=== PATIENT | male | born 1995 | race Caucasian/White ===

== ENCOUNTER 2020-10-07 12:01 | Emergency (ER) | payer OTHER, SELFPAY ==
--- NOTE | ~2020-10-07 | XR_ITS ---
XR ankle LT min 3V DATE: 10/07/2020 12:23 INDICATION: Inversion injury. Generalized lateral pain. TECHNIQUE: 4 views COMPARISON: left ankle FINDINGS: There is mild lateral soft tissue swelling. No fracture or dislocation of the ankle or disr uption of the ankle mortise. No periosteal reaction or bone destruction. IMPRESSION: Mild lateral ankle soft tissue swelling Reviewed, dictated and finalized at location A.
--- NOTE | 2020-10-07 12:05 | ED.LOWEXIN ---
HPI - Extremity Injury (Lower) General Chief Complaint: Extremity Injury, Lower Stated Complaint: lt ankle pain Time Seen by Provider: 10/07/20 12:06 Source: patient and RN notes reviewed History of Present Illness HPI Narrative: Patient is a 24-year-old male who presents the urgent care with complaints of left ankle pain. Patient states that yesterday he was walking backwards in cowboy boots and he heard the ankle pop . Patient states that now it is very difficult to bear weight and feels stiff and swollen. Patient denies of any fall. Patient has been using crutches and taking Tylenol for the pain. No other acute complaints. No acute distress noted. Patient aware of the plan of care. Some parts of this dictation were generated by voice recognition software and may contain typographical and/or grammatical inaccuracies. Related Data Home Medications Medication Instructions Recorded Confirmed No Home Medications 10/07/20 10/07/20 Allergies Allergy/AdvReac Type Severity Reaction Status Date / Time No Known Allergies Allergy Verified 10/07/20 12:16 Review of Systems Review of Systems: Narrative: CONSTITUTIONAL: Denies fever, chills, or sweats. EYES: Denies visual changes, redness, or discharge. ENT: Denies rhinorrhea, congestion, sore throat, or otalgia. CARDIOVASCULAR: Denies chest pain, palpitations, or edema. RESPIRATORY: Denies cough or dyspnea. GASTROINTESTINAL: Denies abdominal pain, nausea, vomiting, or diarrhea. GENITOURINARY: Denies dysuria or hematuria. SKIN: Denies rash or itching. MUSCULOSKELETAL: Reports of left ankle pain/swelling/stiffness NEUROLOGIC: Denies headache, numbness, or weakness. All other systems reviewed are negative, except as documented in HPI. [facility] Family History Family History (Updated 01/19/14 @ 07:13 by DOCTOR UNKNOWN) Other Family history of alcoholism Family history of malignant neoplasm Social History Social History Smoking status: Never smoker Alcohol intake: never Comments At the time of my signature, I reviewed and agree with the nursing past medical, surgical, social, and family history. There is no relevant family history pertinent to the patient complaint. Exam Narrative: Exam Narrative: GENERAL: This is a well-nourished, well-developed patient, in no apparent distress. HEAD: normocephalic, atraumatic. EYES: PERRL. Sclera clear/white. Vision is grossly intact. EARS: External ears normal NOSE: External nose normal with no obvious nasal discharge, nares without redness, no rhinorrhea. THROAT: Mucous membranes moist NECK: Neck supple SKIN: warm, intact with no suspicious lesions or rash, good texture and turgor. NEURO: awake, alert, and oriented to person, place and time. There were no obvious focal neurologic abnormalities. EXTREMITIES: Mild edema noted to the lateral aspect of the left malleolus with mild tenderness. Range of motion limited due to pain. Pain exacerbated with weightbearing. Positive strong left pedal pulse with capillary refill less than 2 seconds. Course Vital Signs Vital signs: Vital Signs Temperature 97.4 F L 10/07/20 12:12 Pulse Rate 64 10/07/20 12:12 Respiratory Rate 16 10/07/20 12:12 Blood Pressure 144/71 H 10/07/20 12:12 Pulse Oximetry 100 10/07/20 12:12 Temperature 97.4 F L 10/07/20 12:17 Pulse Rate 64 10/07/20 12:17 Respiratory Rate 16 10/07/20 12:17 Blood Pressure 144/71 H 10/07/20 12:17 Pulse Oximetry 100 10/07/20 12:17 Reviewed?patient is informed that they may have pre-hypertension or hypertension based on a blood pressure reading in the department. I recommend the patient call the primary care provider listed on their discharge instructions or a physician of their choice this week to arrange follow-up for further evaluation of possible pre-hypertension or hypertension. MDM - Extremity Injury (Lower) MDM Narrative Medical decision making narrative: Reviewed x-ray results with the stacia
[2020-10-07 12:12] VITALS: BP 144/71; PULSE 64; RESP 16; TEMP 36.3; O2SAT 100
[2020-10-07 12:17] VITALS: BP 144/71; PULSE 64; RESP 16; TEMP 36.3; O2SAT 100
== END 2020-10-07 12:53 | disposition home or self-care (01) ==
PROVIDERS: Emergency Provider Nurse Practitioner Family
DX: S93.402A Sprain of unspecified ligament of left ankle, initial encounter (principal); S96.912A Strain of unspecified muscle and tendon at ankle and foot level, left foot, initial encounter; X58.XXXA Exposure to other specified factors, initial encounter; Y93.01 Activity, walking, marching and hiking
CPT/HCPCS: 73610; 99213; G0463

== ENCOUNTER 2022-04-23 10:41 | Emergency (ER) | payer SELFPAY ==
[2022-04-23 10:46] VITALS: BP 132/81; PULSE 62; RESP 16; TEMP 37.3; O2SAT 99
--- NOTE | 2022-04-23 11:26 | ED.URI ---
HPI - URI/Sore Throat General Chief Complaint: Upper Respiratory Infection Stated Complaint: Sore Throat Time Seen by Provider: 04/23/22 11:26 History of Present Illness HPI Narrative: 26-year-old male presents for complaint of sore throat for 3 days. He endorses testing positive for COVID last week. Symptoms are improving. He states last night the sore throat was also better. Today mucous is brown. Unable to tolerate food for 3 days. Drinking small amount of fluids. He is unable to use Chloraseptic spray stating the pharmacies are out of them. He denies associated cough, shortness of breath, wheezing, nausea, vomiting, diarrhea, fevers or chills at this time. Related Data Allergies Allergy/AdvReac Type Severity Reaction Status Date / Time No Known Allergies Allergy Verified 04/23/22 11:13 Review of Systems Review of Systems: ROS per HPI PMFSH Family History Family History Other Family history of alcoholism Family history of malignant neoplasm Social History Social History Smoking status: Never smoker Alcohol intake: never Exam Narrative: GENERAL: well-appearing, no acute distress. EYES: conjunctivae clear ENT: Mucous membranes moist. TMs pearly paige with normal light reflex bilaterally; no tragal tenderness. Oropharynx erythematous without lesions. Tonsils not enlarged and without exudate. No drooling, no hoarseness, no trismus, uvula midline. No tripod positioning, hot potato voice, or soft palate swelling. NECK: Supple. No lymphadenopathy CHEST: Clear to auscultation, breath sounds equal. No respiratory distress, speaks in full sentences. HEART: Regular rate and rhythm. No murmur heard. SKIN: Warm, dry, no rash. NEURO: Alert and oriented x3. Course Course Emergency Course: Patient is aware of diagnosis, understands and agrees to treatment plan. Anticipatory guidance given. Patient agrees to follow-up as directed and is aware of reasons to seek care at the emergency department. Portions of this record may have been created with voice recognition software Level of Care: Express Care Visit Vital Signs Vital signs: Vital Signs Temperature 99.2 F 04/23/22 10:46 Pulse Rate 62 04/23/22 10:46 Respiratory Rate 16 04/23/22 10:46 Blood Pressure 132/81 04/23/22 10:46 Pulse Oximetry 99 04/23/22 10:46 Oxygen Delivery Room Air 04/23/22 10:46 Temperature 99.2 F 04/23/22 10:46 Pulse Rate 62 04/23/22 10:46 Respiratory Rate 16 04/23/22 10:46 Blood Pressure 132/81 04/23/22 10:46 Pulse Oximetry 99 04/23/22 10:46 Oxygen Delivery Room Air 04/23/22 10:46 MDM - URI/Sore Throat MDM Narrative Medical decision making narrative: strep result reviewed with pt. Advise supportive treatments. Patient is appropriate for outpatient treatment and follow-up. Differential Diagnosis Differential diagnosis: Likely upper respiratory infection, viral infection and pharyngitis Lab Data Labs: Strep Screen Presumptive Negative *(Reference Range: Negative)* Discharge Plan Discharge Clinical Impression: Viral infection Patient Disposition: Home, Self-Care Condition: Stable Instructions: Pharyngitis (ED) Additional Instructions: Rapid strep swab was negative today You will be notified in a few days if the culture comes back positive for strep, and appropriate antibiotics will be called in at that time. if symptoms are due to a viral illness, it is not treated with antibiotics. Viral symptoms can be present for up to 10-14 days. Recommend Flonase spray and Zyrtec for sinus congestion Cough syrup may cause drowsiness; avoid driving or take it at night time. Tylenol every 8 hours as needed for pain/fever Soft foods, cool liquids, warm tea. Gargle with warm saltwater twice a day.
== END 2022-04-23 11:38 | disposition home or self-care (01) ==
PROVIDERS: Emergency Provider Nurse Practitioner Family
DX: B34.9 Viral infection, unspecified (principal)
CPT/HCPCS: 87081; 87880; 99213; G0463

== ENCOUNTER 2024-07-04 10:36 | Emergency (ER) | payer BC, SELFPAY ==
--- NOTE | ~2024-07-04 | XR_ITS ---
EXAMINATION: XR knee RT min 4V DATE: 07/04/2024 11:05 INDICATION: Right knee pain TECHNIQUE: Anteroposterior, 2 oblique, sunrise and crosstable lateral views of the right knee were ob tained COMPARISON: None. FINDINGS: Alignment is normal. No fracture. Joint spaces appear normal on nonweightbearing imaging. No joint e ffusion. Soft tissues are unremarkable. IMPRESSION: 1. Normal right knee radiographs. Reviewed, dictated and finalized at location A. [facility] [employer]
[2024-07-04 10:49] VITALS: BP 120/77; PULSE 88; RESP 16; TEMP 37.5; O2SAT 100
--- OUTSIDE RECORDS SUMMARY | 2024-07-04 11:25 | XMS_ITS | Referral Summary ---
Author Organization [facility] Address [address] [place] [address] Care Team Providers Care Edm Operator Name Role Phone No, Physician Primary Care Provider [phone] Allergies No known active allergies Medications doxycycline (VIBRAMYCIN) 100 mg capsule Take 1 tablet/capsule (100 mg total) by mouth 2 (two) times a day 20 capsule 01/12/20 19 Active HYDROcodone-acetam inophen (NORCO) 5-325 mg per tabletIndications: Pain Take 1 tablet by mouth every 6 (six) hours as needed for pain Do not exceed 8 tablets/day. 10 tablet 01/12/20 19 Active ibuprofen (ADVIL,MOTRIN) 600 mg tablet Take 1 tablet (600 mg total) by mouth 3 (three) times a day Take with food. 30 tablet 01/12/20 19 Active promethazine (PHENERGAN) 25 mg tablet Take 1 tablet (25 mg total) by mouth every 6 (six) hours as needed for nausea or vomiting 20 tablet 01/12/20 19 Active promethazine-DM (PROMETHAZINE-DM) 1.25-3 mg/mL syrup Take 5 mL by mouth 4 (four) times a day as needed for cough (And runny nose) Collaborating physician Jomar Olvera MD 120 mL 1 04/23/20 22 Active acetaminophen-code ine (TYLENOL with CODEINE #3) 300-30 mg per tablet Take 1 tablet by mouth every 6 (six) hours as needed for pain (And cough) Collaborating physician Jomar Olvera MD 15 tablet 04/23/20 22 Active ondansetron ODT (ZOFRAN-ODT) 4 mg disintegrating tablet Take 1 tablet (4 mg total) by mouth every 8 (eight) hours as needed for nausea Collaborating physician Jomar Olvera MD 10 tablet 04/23/20 22 Active Active Problems Problem Noted Date Diagnosed Date COVID-19 virus infection 04/23/2022 Viral pharyngitis 04/23/2022 Nausea 04/23/2022 Closed fracture of tibia 09/14/2009 Social History Tobacco Use Types Packs/Day Years Used Date Smoking Tobacco: Never Smokeless Tobacco: Current Chew Tobacco Cessation:Ready to Q uit: Not Asked; Counseling Given: Not Answered Alcohol Use Standard Drinks/Week Comments Not Currently 0 (1 standard drink = 0.6 oz pur e alcohol) Sex and Gender Information Value Date Recorded Sex Assigned at Not on file Legal Sex Male 4:33 PM APPRAISAL TECHNICIAN Gender Identity Not on file Sexual Orientation Not on file Last Filed Vital Signs Vital Sign Reading Time Taken Comments Blood Pressure 125/70 04/23/2022 3:00 PM APPRAISAL TECHNICIAN Pulse 68 04/23/2022 3:00 PM APPRAISAL TECHNICIAN Temperature 36.8 C (98.2 F) 04/23/2022 3:00 PM APPRAISAL TECHNICIAN Respiratory Rate 16 04/23/2022 3:00 PM APPRAISAL TECHNICIAN Oxygen Saturation 100% 04/23/2022 3:00 PM APPRAISAL TECHNICIAN Inhaled Oxygen Concentration - - Weight 77.1 kg (170 lb) 04/23/2022 1:03 PM APPRAISAL TECHNICIAN Height 172.7 cm (5' 8 ) 04/23/2022 1:03 PM APPRAISAL TECHNICIAN Body Mass Index 25.85 04/23/2022 1:03 PM APPRAISAL TECHNICIAN Plan of Treatment Not on file Insurance [place], [place] [id number] [place] [address] PPO [facility] CHOICE PLUS [facility] HMO/PPO Address: [address] [address] [place] [address] [facility] PPO [facility] CHOICE PLUS [facility] HMO/PPO Address: [address] [address] [place] [address] [facility] CHOICE PLUS [facility] HMO/PPO Address: [address] [address] [place] [address] [facility] PPO Care Teams Edm Operator Relationship Specialty Start Date End Date No, Physician PCP - General 01/10/19
--- OUTSIDE RECORDS SUMMARY | 2024-07-04 11:25 | XMS_ITS | Clinical Summary ---
Author Organization [facility] Address [address] [place] [address] Care Team Providers Care Supreme Court Justice Name Role Phone No, Physician Primary Care Provider [phone] Allergies No known active allergies Medications doxycycline [...] on file Legal Sex Male 4:33 PM PRINTER HELPER Gender Identity Not on file Sexual Orientation Not on file Obstetrics History Last Filed Vital Signs Vital Sign Reading Time Taken Comments Blood Pressure 125/70 04/23/2022 3:00 PM PRINTER HELPER Pulse 68 04/23/2022 3:00 PM PRINTER HELPER Temperature 36.8 C (98.2 F) 04/23/2022 3:00 PM PRINTER HELPER Respiratory Rate 16 04/23/2022 3:00 PM PRINTER HELPER Oxygen Saturation 100% 04/23/2022 3:00 PM PRINTER HELPER Inhaled Oxygen Concentration - - Weight 77.1 kg (170 lb) 04/23/2022 1:03 PM PRINTER HELPER Height 172.7 cm (5' 8 ) 04/23/2022 1:03 PM PRINTER HELPER Body Mass Index 25.85 04/23/2022 1:03 PM PRINTER HELPER Plan of Treatment Health Maintenance Due Date Last Done Comments Depression Screening 1995 Hepatitis C Screening 1995 DTaP/Tdap/Td Vaccine (1 - Tdap) 12/10/2006 Varicella Vaccines (1 of 2 - 13+ 2-dose series) 12/10/2008 Hepatitis B Screening 12/10/2013 Regular Well Visit/Exam 18-64 12/10/2013 Influenza Vaccine (#1) 2024 HPV Vaccines Aged Out No longer eligi ble based on patient's age to complete this topic Pneumococcal vaccine <65 Aged Out No longer eligible based on patient's age to complete this topic Insurance [facility] PPO [facility] CHOICE [facility]US [facility] PPO [facility] CHOICE PLUS [facility] CHOICE PLUS [employer] [facility] PPO Care Teams Supreme [address] Justice Relationship Specialty Start Date End Date No, Physician PCP - General 01/10/19
--- NOTE | 2024-07-04 11:30 | ED.LOWEXIN ---
HPI - Extremity Injury (Lower) General Chief Complaint: Extremity Injury, Lower Stated Complaint: right knee injury Time Seen by Provider: 07/04/24 11:30 Source: patient Mode of arrival: ambulatory Limitations: no limitations History of Present Illness HPI Narrative: 28-year-old presented for of right knee pain following an injury that occurred on 06/23/24. Patient states at the time he jumped off his truck but the right foot was causing him to twist the right knee. Patient has been able to walk without any difficulty he continues to report pain he has taken occasional Tylenol for pain. Denies swelling, redness or deformity. He was to make sure the knee is not broken. Related Data Home Medications ?Medication ?Instructions ?Recorded ?Confirmed ?Last Taken ?Type No Home Medications 07/04/24 Unknown History Allergies Allergy/AdvReac Type Severity Reaction Status Date / Time No Known Allergies Allergy Verified 07/04/24 10:46 Review of Systems Review of Systems: CONSTITUTIONAL: Denies body aches, fever, chills EYES: Denies visual changes ENT: Denies rhinorrhea, congestion CARDIOVASCULAR: Denies chest pain, palpitations, or edema. RESPIRATORY: Denies cough or dyspnea. GASTROINTESTINAL: Denies abdominal pain, nausea, vomiting, or diarrhea. SKIN: Denies rash, itching, or wounds. MUSCULOSKELETAL: Reports right knee pain NEUROLOGIC: Denies headache, numbness, tingling, or weakness. PSYCH: Denies depression or anxiety. All systems reviewed & are unremarkable except as noted in HPI and below PMFSH Family History Family History Other Family history of alcoholism Family history of malignant neoplasm Social History Social History Smoking status: Never smoker Alcohol intake: never Comments At time of signature, I have reviewed and agree with nursing past medical, surgical, social and family history unless otherwise noted. Please see nursing chart for further information. There is no relevant family history pertinent to the presenting complaint Exam Narrative: GENERAL: Well-appearing, well-nourished, and in no acute distress. HEAD: Normocephalic, atraumatic. EYES: PERRLA, conjunctivae clear NECK: Supple. CHEST: Speaks in full sentences. No respiratory distress. HEART: Regular rate and rhythm. Normal and equal peripheral pulses. EXTREMITIES: Patient is able to bear weight and ambulate. No bruising, erythema or warmth to the right knee. The right knee is without obvious asymmetry or deformity when compared to the other knee. Patient is able to tolerate full flexion, extension, internal and external rotation. No tenderness to palpation of the patella, no effusion or ballottement. No tenderness over the infrapatellar tendon. No tenderness over the proximal fibular head. No quadriceps tenderness. Distal motor and neurovascular status intact. NEURO: Alert and oriented x3. PSYCH: Normal mood and affect Course Course Emergency Course: Patient is aware of diagnosis, understands and agrees to treatment plan. Anticipatory guidance given. Patient agrees to follow-up as directed and is aware of reasons to seek care at the emergency department. Portions of this record may have been created with voice recognition software Level of Care: Express Care Visit Vital Signs Vital signs: Vital Signs Temperature 99.5 F 07/04/24 10:49 Pulse Rate 88 07/04/24 10:49 Respiratory Rate 16 07/04/24 10:49 Blood Pressure 120/77 07/04/24 10:49 Pulse Oximetry 100 07/04/24 10:49 Oxygen Delivery Room Air 07/04/24 10:49 Temperature 99.5 F 07/04/24 10:49 Pulse Rate 88 07/04/24 10:49 Respiratory Rate 16 07/04/24 10:49 Blood Pressure 120/77 07/04/24 10:49 Pulse Oximetry 100 07/04/24 10:49 Oxygen Delivery Room Air 07/04/24 10:49 Reviewed MDM - Extremity Injury (Lower) MDM Narrative Medical decision making narrative: Discussed physical exam findings. Advised supportive measures and signs/symptoms to go to the ER. Pt is appropriate for outpt treatment and f/u. Differential Diagnosis Differential diagnosis: Likely other (osteoarthritis, patella dislocation, patellar tendonitis, tendon rupture, gout, bakers cyst, septic bursitis, dvt, tibial plateau fracture) Imaging Data Radiologist's impression: Patient: Dawood Masterson : 1995 MR#: [id number] Age: 28 Acct:[id number] Loc: [facility] ADM Date: 07/04/24Attending Dr: Ordering Physician: Jennifer Jose APRN Date of Service: 07/04/24 Procedure(s): XR knee RT min 4V Accession Number(s): [id number] cc: Jennifer Jose APRN; INDUSTRIAL TRUCK DRIVER PHYSICIAN~ EXAMINATION: XR knee RT min 4V DATE: 07/04/2024 11:05 INDICATION: Right knee pain TECHNIQUE: Anteroposterior, 2 oblique, sunrise and crosstable lateral views of the right knee were obtained COMPARISON: None. FINDINGS: Alignment is normal. No fracture. Joint spaces appear normal on nonweightbearing imaging. No joint effusion. Soft tissues are unremarkable. IMPRESSION: 1. Normal right knee radiographs. Discharge Plan Discharge Clinical Impression: Acute pain of right knee Patient Disposition: Home, Self-Care Condition: Stable Instructions: Antibiotic Form, Knee Sprain (ED) Additional Instructions: Rest. Avoid running or excessive walking or anything that worsens the symptoms Tylenol 1000mg every 8 hours as needed You can alternate with ibuprofen 800mg Alternate ice/heat to the site. Lidocaine or salon pas pain patch or use pain cream like icy/hot or biofreeze. Follow up with your primary care provider as needed in 1 week Go to the ER for worsening symptoms or concerns Patient Language: Samoan Prescriptions: No Action No Home Medications Follow-up/Referrals: PHYSICIAN,INDUSTRIAL TRUCK DRIVER [Primary Care Provider] -
== END 2024-07-04 11:42 | disposition home or self-care (01) ==
PROVIDERS: Emergency Provider Nurse Practitioner Family
DX: M25.561 Pain in right knee (principal)
CPT/HCPCS: 73564; 99213; G0463